=== PATIENT | male | born 1995 | race Caucasian/White ===

== ENCOUNTER 2021-01-30 10:43 | Emergency (ER) | payer BC ==
[~2021-01-30 10:43] MED LIST: NORCO 5-325 TA1 EACH PO
[2021-01-30 12:40] LABS: HEMOGLOBIN 15.7 gm/dl (14.0-17.5); RED BLOOD COUNT 5.18 M/UL (4.20-5.50); WHITE BLOOD COUNT 5.6 K/UL (4.5-11.0)
[2021-01-30 12:59] LABS: BUN/CREATININE RATIO 14 (0-10)
[2021-02-06] MEDS ORDERED: IBUPROFEN200 MG PO (07:24)
== END 2021-01-30 13:30 | disposition home or self-care (01) ==
LOC: ER1 10:43
PROVIDERS: Physician Assistant
DX: K62.5 Hemorrhage of anus and rectum (principal)
CPT/HCPCS: 80048; 82270; 85025; 99283

== ENCOUNTER → 2021-02-06 | Day surgery (SDC) | payer BC, OTHER ==
[~2021-02-06] MED LIST changes: +IBUPROFEN200 MG PO
== END | disposition home or self-care (01) ==
LOC: OR 06:51
DX: K64.0 First degree hemorrhoids (principal); K64.4 Residual hemorrhoidal skin tags; K60.2 Anal fissure, unspecified; K62.89 Other specified diseases of anus and rectum; Z80.0 Family history of malignant neoplasm of digestive organs; Z79.899 Other long term (current) drug therapy
CPT/HCPCS: J2250; J2704; J7040

== ENCOUNTER 2021-08-14 14:27 | Emergency (ER) | payer OTHER, MEDICAID ==
[2021-08-14] MEDS ORDERED: CYCLOBENZAPRINE10 MG PO (15:02)
[2021-08-14] MEDS ORDERED: IBU800 MG PO (15:02)
== END 2021-08-14 15:42 | disposition home or self-care (01) ==
LOC: ER1 14:27
DX: S39.012A Strain of muscle, fascia and tendon of lower back, initial encounter (principal); X50.9XXA Other and unspecified overexertion or strenuous movements or postures, initial encounter
CPT/HCPCS: 99283